=== PATIENT | female | born 1935 | race Caucasian/White ===

== ENCOUNTER 2016-03-17 19:29 | Observation (INO) | payer MEDICARE, OTHER ==
[~2016-03-17] VITALS: Ht 162.6 cm; Wt 84.0 kg
[2016-03-17] MEDS ORDERED: ASPIRIN 81 MG CHEW TAB ONE (19:44)
[2016-03-18] MEDS ORDERED: NITROGLYCERIN 50 MG/250 ML IV PRN (00:20)
[2016-03-18] MEDS ORDERED: LORAZEPAM 0.5 MG TAB PO PRN (00:20)
[2016-03-18] MEDS ORDERED: DOCUSATE SOD 100 MG CAP PO PRN (00:20)
[2016-03-18] MEDS ORDERED: ONDANSETRON 4 MG VIAL IV PRN (00:20)
[2016-03-18] MEDS ORDERED: SALINE FLUSH 10 ML FLUSH PRN (00:20)
[2016-03-18] MEDS ORDERED: TRAMADOL 50 MG TAB PO PRN (00:20)
[2016-03-18] MEDS ORDERED: MORPHINE 2 MG/ML SYR IV PRN (00:20)
[2016-03-18] MEDS ORDERED: TEMAZEPAM 7.5 MG CAP PO PRN (00:20)
[2016-03-18] MEDS ORDERED: NITROGLYCERIN SL 0.4 MG TAB SL PRN (00:20)
[2016-03-18] MEDS ORDERED: SODIUM CHLORIDE 0.9% FLUSH BAG 500 ML IV PRN (00:20)
[2016-03-18] MEDS ORDERED: ACETAMINOPHEN 325 MG TAB PO PRN (00:25)
[2016-03-18 02:00] VITALS: BP_SYST 158; RESP 18; TEMP 98.1; Ht 162.6 cm; Wt 84.0 kg
[2016-03-18 02:14] VITALS: RESP 18
[2016-03-18 07:22] VITALS: BP_SYST 141; RESP 16; TEMP 98
[2016-03-18] MEDS ORDERED: ASPIRIN EC 81 MG TAB PO SCH (08:00)
[2016-03-18] MEDS ORDERED: SALINE FLUSH 10 ML FLUSH SCH (08:00)
[2016-03-18] MEDS ORDERED: SODIUM CHLORIDE 0.9% 1,000 ML IV SCH (09:30)
[2016-03-18 11:53] VITALS: BP_SYST 146; RESP 16; TEMP 98.3
[2016-03-18 14:41] VITALS: BP_SYST 146; RESP 16; TEMP 98.3
== END 2016-03-18 08:32 | disposition home or self-care (01) ==
LOC: ENRESERVTM → ENRESERVDT → ER 19:29 → EMR 23:31 → ENPENDDIS 23:31 → PCU2 03-18 02:13
PROVIDERS: ADMIT Internal Medicine Cardiovascular Disease; ATTEND Internal Medicine Cardiovascular Disease
CPT/HCPCS: 36415 ×2; 71010 ×2; 80053 ×2; 80061 ×2; 82550 ×2; 82553 ×2; 83735 ×2; 84484 ×2; 85025 ×2; 85610 ×2; 85730 ×2; 93005 ×2; 94799; 97799; 99285; G0378